=== PATIENT | female | born 1960 | race Caucasian/White ===

== ENCOUNTER 2017-02-16 12:07 | Emergency (ER) | payer OTHER ==
[2017-02-16 12:22] VITALS: TEMP 98.4; BMI 27.8
--- NOTE | 2017-02-16 12:38 | PDOC ---
Attending Attestation - HPI HPI: 02/16/17 13:43 - Physicial Exam PE: 02/16/17 13:54 Constitutional: Awake, alert, oriented. No acute distress. Head: Normocephalic. Atraumatic Eyes: PERRL. EOMI. Conjunctivae are not pale. ENT: Mucous membranes are moist and intact. Posterior pharynx without exudates or erythema. Uvula midline. Neck: Supple. Full ROM. No lymphadenopathy. Cardiovascular: Regular rate. Regular rhythm. S1, S2 regular. Distal pulses are 2+ and symmetric. Pulmonary/Chest: No evidence of respiratory distress. Clear to auscultation bilaterally No wheezing, rales or rhonchi. Abdominal: Soft and non-distended. There is no tenderness. No rebound, guarding or rigidity. No organomegaly. No palpable masses. Good bowel sounds. Back: No CVA tenderness. Musculoskeletal: No edema. No cyanosis. No clubbing. Full range of motion in all extremities. Nocalf tenderness. Radial/pedal pulses are intact and 2+ bilaterally Skin: +there is urticaria to the bilateral hands, upper extremities, across the right flank and down the back. Neurological: Alert and oriented to person, place, and time. Cranial nerves II -XII are grossly intact. Normal speech. Strength is grossly symmetric. No sensory deficits. Psychiatric: Good eye contact. Normal interaction, affect and behavior. <Estefani Young - Last Filed: 02/16/17 13:54> - Resident Resident Name: AggieEstephania - ED Attending Attestation I have performed the following: I have examined & evaluated the patient, The case was reviewed & discussed with the resident, I agree w/resident's findings & plan, Exceptions are as noted - Medical Decision Making 02/16/17 12:38 I, Dr. Radha Allen, DO, attest that this document has been prepared under my direction and personally reviewed by me in its entirety. I further attest, that it accurately reflects all work, treatment, procedures and medical decision -making performed by me. 02/16/17 13:15 a/p: 56yo female with urticarial rash x 3 months and recently had labs that showed elevated cr -repeat labs -benadryl, ivf, pepcid, solumedrol <Radha Allen - Last Filed: 02/16/17 14:04> Heart Score/ECG Review - ECG Intrepretation Comment:: 02/16/17 14:03 sinus at 73, nl axis, nl interval, no acute st/t wave findings <Radha Allen - Last Filed: 02/16/17 14:04>
[2017-02-16] MEDS ORDERED: hydrOXYzine HCL 25 MG TABLET (FP) PO ONE (12:56)
[2017-02-16] MEDS ORDERED: SODIUM CHLORIDE 0.9% 1000 ML INFUS.BAG IV ONE (13:07)
[2017-02-16] MEDS ORDERED: methylPREDNISolone NA SUCC 125 MG/2 ML VIAL IVPUSH ONE (13:07)
[2017-02-16] MEDS ORDERED: FAMOTIDINE IV 20 MG/12 ML VIAL IVPUSH ONE (13:07)
[2017-02-16 13:24] LABS: BASO % 1.1 % (0-2.0); EOS % 2.1 % (0-4.5); HEMATOCRIT 40.8 % (32.4-45.2); LYMPH % 34.2 % (8-40); MCH 30.9 pg (25.7-33.7); MCHC 34.3 g/dl (32.0-36.0); MEAN PLT VOLUME 10.1 fl (7.5-11.1); MONO % 6.8 % (3.8-10.2); NEUT % 55.8 % (42.8-82.8); PLATELET COUNT 208 K/MM3 (134-434); RBC 4.54 M/mm3 (3.60-5.2); WHITE BLOOD COUNT 4.3 K/mm3 (4.0-10.0)
[2017-02-16] MEDS ORDERED: methylPREDNISolone NA SUCC 125 MG/2 ML VIAL ONE ×2 (13:28→13:30)
[2017-02-16] MEDS ORDERED: FAMOTIDINE 20 MG/50 ML IVPB 20 MG/50 ML MG IVPB ONE (13:29)
--- NOTE | 2017-02-16 13:31 | PDOC ---
History of Present Illness - General Chief Complaint: Revisit, Lab Variance Stated Complaint: ABD PAIN, RASH Time Seen by Provider: 02/16/17 12:25 History Source: Patient Exam Limitations: No Limitations - History of Present Illness Initial Comments: This is a 56 YOF with h/o recently diagnosed CKD stage 3, NIDDM, HTN, and HLD who presents with diffuse body rash and itching worsening over the past 3 months which was acutely worse last night and this morning. She notes having tried Benadryl as prescribed but does not like how drowsy it makes her. She additionally notes nausea, chills, diffuse back pain, and hand cramping which have been worsening particularly over the past week. She has not had any recent dysuria or frequency, fever, cough, runny nose, sore throat, chest pain, SOB, numbness, tingling, focal weakness, vision changes, or other symptoms. She denies any h/o kidney stones or heavy drinking, and denies any heavy use of NSAIDs or other pain relievers. Past History - Past Medical History Allergies/Adverse Reactions: Allergies Allergy/AdvReac Type Severity Reaction Status Date / Time shellfish derived Allergy Swelling Verified 02/16/17 12:25 Home Medications: Ambulatory Orders Atorvastatin Ca [Lipitor] 10 mg PO HS 02/16/17 Famotidine [Pepcid] 20 mg PO DAILY #14 tablet 02/16/17 Hydroxyzine HCl [Atarax -] 25 mg PO TID #21 tablet 02/16/17 Lisinopril 10 mg PO BID 02/16/17 Metformin HCl [Metformin HCl ER] 1,000 mg PO DAILY 02/16/17 Methylprednisolone [Medrol Dose Brett] 4 mg PO ASDIR #21 tablet 02/16/17 Omeprazole 20 mg PO DAILY 02/16/17 COPD: No Diabetes: Yes Disorders: No (CKD) HTN: Yes Hypercholesterolemia: Yes - Suicide/Smoking/Psychosocial Hx Smoking History: Never smoked Hx Alcohol Use: No Drug/Substance Use Hx: No Review of Systems - Review of Systems Able to Perform ROS?: Yes Constitutional: Yes: Chills. No: Fever, Unexplained wgt Loss HEENTM: No: Nose Congestion, Throat Pain Respiratory: No: Cough, Shortness of Breath Cardiac (ROS): No: Chest Pain, Palpitations ABD/GI: Yes: Nausea. No: Constipated, Diarrhea, Vomiting : Yes: Flank Pain. No: Burning, Dysuria, Frequency, Hematuria Musculoskeletal: Yes: Back Pain, Other (hand cramping). No: Neck Pain Integumentary: Yes: Pruritus, Rash. No: Bruising Neurological: No: Headache, Numbness, Tingling, Weakness, Dizziness Endocrine: No: Unexplained Weight Gain, Unexplained Weight Loss *Physical Exam - Vital Signs Last Vital Signs Temp Pulse Resp BP Pulse Ox 98.4 F 91 H 20 146/91 98 02/16/17 12:17 02/16/17 12:17 02/16/17 12:17 02/16/17 12:17 02/16/17 12:17 - Physical Exam General Appearance: Yes: Nourished, Appropriately Dressed, Other (adult Luxembourger- speaking female accompanied by her daughter, patient appears uncomfortable, actively scratching all over her body, cannot seem to find a comfortable position, superficial excoriations and dry skin diffusely all over body) HEENT: positive: EOMI, SERJIO, Normal Voice, Hearing Grossly Normal. negative: Scleral Icterus (R), Scleral Icterus (L), Nasal Congestion Neck: positive: Trachea midline, Supple. negative: Tender, Rigid Respiratory/Chest: positive: Lungs Clear, Normal Breath Sounds. negative: Respiratory Distress, Crackles, Rhonchi, Stridor, Wheezing Cardiovascular: positive: Regular Rhythm, Regular Rate. negative: Murmur Gastrointestinal/Abdominal: positive: Normal Bowel Sounds, Soft. negative: Tender, Organomegaly, Pulsatile Mass, Guarding Musculoskeletal: positive: Normal Inspection. negative: Decreased Range of Motion, Vertebral Tenderness Extremity: positive: Normal Capillary Refill, Normal Inspection, Normal Range of Motion. negative: Tender, Cyanosis Integumentary: positive: Normal Color, Dry, Warm, Hives (diffusely throughout anterior and posterior trunk, all four extremities, neck, face, etc). 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 ED Treatment Course - LABORATORY CBC & Chemistry Diagram: 02/16/17 13:16 02/16/17 13:16 - RADIOLOGY Radiology Studies Ordered: Category Date Time Status CHEST PA & LAT [RAD] Stat Radiology 02/16/17 12:47 Ordered Medical Decision Making - Medical Decision Making 56 YOF who presents with worsened diffuse urticaria, recently diagnosed with CKD. She notes 3 months of worsening itchy rash significantly worse for the past day and keeping her from sleep last night. Has been using topical creams/ointments and Benadryl but these are not helping and she does not like the drowsiness from Benadryl. On exam she has diffuse urticaria, scratching constantly, appears uncomfortable , no angioedema. For symptoms she is given IV Pepcid, SoluMedrol, Benadryl, and IVF. Ordered are CBCD, CMP, HIV Oraquick, TSH, ionized Ca, LDH, UA cx, EKG. 02/16/17 15:16 Patient states her symptoms have nearly resolved after medications and fluids. Labs are unremarkable and actually her Cr is 0.9, GFR is >60. The patient feels comfortable with plan to discharge home with prescriptions sent to pharmacy for sxs. 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 Return precautions are discussed. *DC/Admit/Observation/Transfer Diagnosis at time of Disposition: Urticaria - Prescriptions Prescriptions: Famotidine [Pepcid] 20 mg PO DAILY #14 tablet Hydroxyzine HCl [Atarax -] 25 mg PO TID #21 tablet Methylprednisolone [Medrol Dose Brett] 4 mg PO ASDIR #21 tablet - Referrals Referrals: Denise Erwin MD [Staff Physician] - Christ Chandra MD [Staff Physician] - - Patient Instructions Printed Discharge Instructions: DI for Hives Additional Instructions: Szymanski visto en la simi emergencia por cecilio erupcion de urticaria. Hicimos purebas de laboratorio con la marisol y la orina y todo parecia normal. Adela niveles de rinon tambien hector realmente normales aqui hoy. Le dimos medicamentos para la erupcion que ayudo con las sintomas. Estamos mandando cecilio receta electronico a desai farmacia para lexis medicamentos que pueden ayudar con las sintomas. Tomelos arthur se indica y vivi cecilio vivien con un dermatologo y un alergista esta semana ( llamalas y digales que lo vieron en la simi emergencia). Regresar por cualquier sintoma nuevo o que empeore arthur dificultad respirar, dolor de pecho, o otra sintoma. Print Language: CZECH - Post Discharge Activity
[2017-02-16 13:45] LABS: URINE APPEARANCE SLCLOUDY; URINE BILIRUBIN NEGATIVE (NEGATIVE); URINE BLOOD NEGATIVE (NEGATIVE); URINE COLOR LTYELLOW; URINE GLUCOSE (UA) NEGATIVE (NEGATIVE); URINE KETONE NEGATIVE (NEGATIVE); URINE NITRITE NEGATIVE (NEGATIVE); URINE PROTEIN NEGATIVE (NEGATIVE); URINE UROBILINOGEN NEGATIVE mg/dL (0.2-1.0)
[2017-02-16 13:59] LABS: BILIRUBIN,TOTAL 0.4 mg/dL (0.2-1.0); BLOOD UREA NITROGEN 13 mg/dL (7-18); CALCIUM 9.7 mg/dL (8.5-10.1); CO2 30 mmol/L (21-32); CREATININE 0.9 mg/dL (0.55-1.02); GLUCOSE,RANDOM 103 mg/dL (74-106); PHOSPHOROUS 3.1 mg/dL (2.5-4.9); SGOT/AST 9 U/L (15-37); SGPT/ALT 19 U/L (12-78); TOT PROT 7.7 g/dl (6.4-8.2)
[2017-02-16 14:07] LABS: ALK PHOS 67 U/L (45-117); ANION GAP 7 (8-16); CHLORIDE 102 mmol/L (98-107); POTASSIUM 3.9 mmol/L (3.5-5.1); SODIUM 139 mmol/L (136-145)
[2017-02-16 15:55] VITALS: BP 124/78; PULSE 72
[2017-02-16 20:58] LABS: URINE LEUK ESTERASE TRACE (NEGATIVE)
[2017-02-16 23:04] LABS: URINE BACTERIA MANY /hpf (NEGATIVE); URINE RBC 0-3 /hpf (0-3)
--- NOTE | 2017-02-26 11:37 | EKG ---
Test Reason : Blood Pressure : / mmHG Vent. Rate : 073 BPM Atrial Rate : 073 BPM P-R Int : 148 ms QRS Dur : 080 ms QT Int : 386 ms P-R-T Axes : 045 -05 027 degrees QTc Int : 425 ms NORMAL SINUS RHYTHM LOW VOLTAGE QRS BORDERLINE ECG NO PREVIOUS ECGS AVAILABLE Confirmed by SIOBHAN WALKER, MARGARITA ([id number]) on 02/26/2017 11:36:57 AM Referred By: Confirmed By:MARGARITA MCCANN MD
== END 2017-02-16 15:55 | disposition home or self-care (01) ==
LOC: JER 12:07
DX: L50.9 Urticaria, unspecified (principal); I12.9 Hypertensive chronic kidney disease with stage 1 through stage 4 chronic kidney disease, or unspecified chronic kidney disease; E11.22 Type 2 diabetes mellitus with diabetic chronic kidney disease; N18.3 Chronic kidney disease, stage 3 (moderate); Z79.84 Long term (current) use of oral hypoglycemic drugs
CPT/HCPCS: 36415; 71020-TC; 80053; 81003; 81015; 82330; 83615; 83735; 84100; 84443; 85025; 87086; 87186; 87389; 93005; 93010; 99283-25

== ENCOUNTER 2020-01-28 09:12 | Emergency (ER) | payer OTHER ==
[2020-01-28 09:23] VITALS: BMI 27.4
[2020-01-28] MEDS ORDERED: LACTATED RINGERS SOLUTION 1000 ML INFUS.BAG IV ONE (10:19)
[2020-01-28] MEDS ORDERED: ACETAMINOPHEN 325 MG TABLET (FP) PO ONE (10:19)
[2020-01-28 11:18] LABS: BASO % 0.7 % (0-2.0); EOS % 1.3 % (0-4.5); HEMATOCRIT 43.4 % (32.4-45.2); HEMOGLOBIN 14.6 GM/dL (10.7-15.3); MCH 31.8 pg (25.7-33.7); MCHC 33.6 g/dl (32.0-36.0); MEAN CELL VOLUME 94.4 fl (80-96); MONO % 6.5 % (3.8-10.2); NEUT % 58.5 % (42.8-82.8); PLATELET COUNT 217 K/MM3 (134-434); RDW 13.5 % (11.6-15.6); WHITE BLOOD COUNT 4.3 K/mm3 (4.0-10.0)
[2020-01-28 11:19] LABS: POTASSIUM 4.3 mmol/L (3.5-5.1)
[2020-01-28 11:22] LABS: CALCIUM 9.7 mg/dL (8.5-10.1)
[2020-01-28 11:23] LABS: ALBUMIN 4.1 g/dl (3.4-5.0); BLOOD UREA NITROGEN 17.4 mg/dL (7-18)
[2020-01-28 11:28] LABS: BILIRUBIN,TOTAL 0.5 mg/dL (0.2-1); TOT PROT 7.6 g/dl (6.4-8.2)
[2020-01-28 12:21] LABS: HCG,QUALITATIVE URINE Negative
[2020-01-28 12:26] LABS: EPI CELLS 25 /uL (0-25.1); HYALINE CASTS 1 /uL (0-3.1); PH,URINE 6.5 (5.0-8.0); URINE APPEARANCE CLOUDY; URINE BACTERIA 6287 /uL (0-1359); URINE BILIRUBIN NEGATIVE (NEGATIVE); URINE COLOR YELLOW; URINE GLUCOSE (UA) NEGATIVE (NEGATIVE); URINE KETONE NEGATIVE (NEGATIVE); URINE LEUK ESTERASE 1+ (NEGATIVE); URINE NITRITE POSITIVE (NEGATIVE); URINE PROTEIN NEGATIVE (NEGATIVE); URINE RBC 5 /uL (0-23.9); URINE UROBILINOGEN 0.2 mg/dL (0.2-1.0); URINE WBC 178 /uL (0-25.8)
[2020-01-28] MEDS ORDERED: KETOROLAC TROMETHAMINE 30 MG/1 ML VIAL IVPUSH ONE (13:23)
[2020-01-28] MEDS ORDERED: CEFTRIAXONE 1 GM in DEXTROSE 5%-WATER - 100 ML IVPB ONE (13:23)
[2020-01-28 13:38] VITALS: BP 106/68; PULSE 65; TEMP 98
[2020-01-28] MEDS ORDERED: KETOROLAC TROMETHAMINE 30 MG/1 ML VIAL ONE (13:47)
[2020-01-28] MEDS ORDERED: CEFTRIAXONE 1 GM/50 ML BAG ONE (13:47)
== END 2020-01-28 15:24 | disposition home or self-care (01) ==
LOC: JER 09:12
PROC: 3E03329 Introduction of Other Anti-infective into Peripheral Vein, Percutaneous Approach (ICD-10-PCS; principal; 2020-01-28)
PROC: 3E0333Z Introduction of Anti-inflammatory into Peripheral Vein, Percutaneous Approach (ICD-10-PCS; 2020-01-28)
DX: N12 Tubulo-interstitial nephritis, not specified as acute or chronic (principal); N39.0 Urinary tract infection, site not specified
CPT/HCPCS: 36415; 74176-TC; 80053; 81003; 84703; 85025; 87086; 87186; 87491; 87591; 99285-25

== ENCOUNTER 2023-09-12 10:24 | Emergency (ER) | payer OTHER ==
[2023-09-12 10:36] VITALS: BP 141/76; PULSE 78; RESP 18; TEMP 97.7; BMI 25.5
[2023-09-12] MEDS ORDERED: IBUPROFEN 400 MG TABLET (FP) PO ONE (10:56)
[2023-09-12] MEDS: IBUPROFEN 400 MG TABLET (FP) PO ONE (11:00)
== END 2023-09-12 15:02 | disposition home or self-care (01) ==
LOC: JER 10:24
DX: S80.911A Unspecified superficial injury of right knee, initial encounter (principal); R26.2 Difficulty in walking, not elsewhere classified; W00.0XXA Fall on same level due to ice and snow, initial encounter
CPT/HCPCS: 73562-TC-RT-FY; 93971-TC; 99284-25